=== PATIENT | female | born 1950 | race Hispanic/Latino ===

== ENCOUNTER 2017-05-23 15:50 | Outpatient (CLI) | payer BC | END 2017-05-23 15:51 | disposition home or self-care (01) | LOC: LAB 15:50 | PROVIDERS: ATTEND Specialist | DX: M31.6 Other giant cell arteritis (principal) | CPT/HCPCS: 36415; 85652 ==

== ENCOUNTER 2017-06-21 14:33 | Outpatient (CLI) | payer BC ==
--- NOTE | 2017-06-22 10:35 | XRay Report ---
PARANASAL SINUSES, 4 views: History: Disorders of nose and nasal sinuses. Multiple views of the paranasal sinuses demonstrate normal formation with no abnormal mucoperiosteal thickening or fluid levels. The bony avilez are intact. IMPRESSION: Normal study.
== END 2017-06-21 14:34 | disposition home or self-care (01) ==
LOC: XRAY 14:33
PROVIDERS: ATTEND Specialist
DX: J34.9 Unspecified disorder of nose and nasal sinuses (principal); G45.9 Transient cerebral ischemic attack, unspecified
CPT/HCPCS: 36415; 70220; 83519; 85652